=== PATIENT | female | born 1980 ===

== ENCOUNTER 2017-02-11 06:22 | Inpatient (IN) ==
[2017-02-11] MEDS ORDERED: BUTORPHANOL 2 MG/ML VIAL IV PRN (06:37)
[2017-02-11] MEDS ORDERED: ONDANSETRON 4 MG/2 ML VIAL IV PRN ×2 (06:37→21:39)
[2017-02-11] MEDS ORDERED: LACTATED RINGERS 250 ML IV ONE (06:37)
[2017-02-11] MEDS ORDERED: OXYTOCIN/LR 20 UNIT/1,000 ML BAG IV SCH (07:00)
[2017-02-11 07:05] LABS: Basophils % 0.3 % (0.0-0.8); Eosinophils % 0.7 % (0.00-10.9); Hematocrit 31.5 VOL% (35.7-47.0); Immature Granulocytes % 0.3 %; Immature Granulocytes Absolute 0.02 #; Lymphocytes # 1.5 10*3/uL (1.4-4.0); Lymphocytes % 25.5 % (21.3-54.2); Mean Corpuscular HGB Conc 31.7 GM/DL (32-36); Mean Corpuscular Hemoglobin 23 PG (27-34); Mean Corpuscular Volume 70.8 FL (87-102); Mean Platelet Volume 12.4 FL (9.6-12.0); Monocytes # 0.5 10*3/uL (0.11-0.8); Neutrophils # 3.8 10*3/uL (1.4-7.4); Neutrophils % 65.2 % (38.7-73.9); Platelet Count 212 T/CUMM (130-400); Red Blood Count 4.45 MC/CUMM (3.8-5.5); Red Cell Distribution Width 14.3 % (9.3-17.3); White Blood Count 5.8 T/CUMM (4-12)
[2017-02-11] MEDS: LACTATED RINGERS 1,000 ML IV SCH ×3 (07:46→17:58)
[2017-02-11 10:57] LABS: Apearance,Urine Slightly Hazy (Clear); Bacteria,Urine Few /HPF (Few); Bilirubin,Urine Negative (Negative); Blood, Urine Moderate mg/dL (Negative); Glucose,Urine (UA) Negative (Negative); Ketones,Urine Negative (Negative); Mucus,Urine Occasional /LPF (Occasional); Nitrite,Urine Negative (Negative); Protein,Urine Negative; RBC,Urine 5 /HPF (0-4); Squamous Epithelial Cell,Urine Occasional /HPF (0-10); Urine Color Yellow (Yellow); Urine Specific Gravity 1.008 (1.001-1.035); Urine Urobilinogen < 2.0 EU/DL (0.2-1.0); WBC,Urine 3 /HPF (0-6)
[2017-02-11] MEDS: MEPERIDINE 50 MG/1 ML VIAL IV PRN ×2 (12:59→18:24)
[2017-02-11] MEDS ORDERED: LACTATED RINGERS 1,000 ML IV ONE (14:39)
[2017-02-11] MEDS ORDERED: ePHEDrine 50 MG/ML AMP IV PRN (14:39)
[2017-02-11] MEDS ORDERED: CITRIC ACID/SODIUM CITRATE 30 ML UDCUP PO ONE (14:39)
[2017-02-11] MEDS ORDERED: FAMOTIDINE 20 MG/2 ML VIAL IV ONE (14:39)
[2017-02-11] MEDS ORDERED: PROMETHAZINE 25 MG/1 ML VIAL IM ONE (14:40)
[2017-02-11] MEDS ORDERED: hydrOXYzine HCL 25 MG/1 ML VIAL IM PRN (14:40)
[2017-02-11] MEDS ORDERED: diphenhydrAMINE 50 MG/1 ML VIAL IV PRN ×2 (14:40)
[2017-02-11] MEDS ORDERED: fentaNYL 2 MCG/ROPIV 0.2% EPID 150 ML EPIDURAL SCH (15:00)
[2017-02-11 16:55] LABS: Apearance,Urine CLEAR (Clear); Bacteria,Urine Occasional /HPF (Few); Bilirubin,Urine Negative (Negative); Blood, Urine Negative (Negative); Glucose,Urine (UA) Negative (Negative); Ketones,Urine 80 mg/dL (Negative); Mucus,Urine Occasional /LPF (Occasional); Nitrite,Urine Negative (Negative); Protein,Urine Negative; RBC,Urine 1 /HPF (0-4); Squamous Epithelial Cell,Urine Occasional /HPF (0-10); Urine Color Yellow (Yellow); Urine Specific Gravity 1.011 (1.001-1.035); Urine Urobilinogen < 2.0 EU/DL (0.2-1.0); WBC,Urine 1 /HPF (0-6)
[2017-02-11] MEDS ORDERED: LIDOCAINE 1% 50 ML VIAL ONE (19:20)
[2017-02-11] MEDS ORDERED: METHYLERGONOVINE 0.2 MG/1 ML AMP ONE (19:20)
[2017-02-11] MEDS ORDERED: miSOPROStol 200 MCG TABLET ONE (19:20)
[2017-02-11] MEDS ORDERED: OXYTOCIN/LR 20 UNIT/1,000 ML BAG IV ONE ×2 (20:17→21:39)
[2017-02-11] MEDS ORDERED: DIPH/TET/ACEL PERT BOOSTER VACCINE 0.5 ML VIAL IM ONE (21:39)
[2017-02-11] MEDS ORDERED: BISACODYL 10 MG SUPP RECTAL PRN (21:39)
[2017-02-11] MEDS ORDERED: oxyCODONE/ACETAMINOPHEN 5-325 MG TABLET PO PRN (21:39)
[2017-02-11] MEDS ORDERED: BENZOCAINE 20%/MENTHOL 0.5% SPRAY 56 GM CAN TOP PRN (21:39)
[2017-02-11] MEDS ORDERED: WITCH HAZEL PADS 100/JAR TOP PRN (21:39)
[2017-02-11] MEDS ORDERED: MEASLES/MUMPS/RUBELLA VACCINE 0.5 ML VIAL SUBCUT ONE (21:39)
[2017-02-11] MEDS ORDERED: RHO(D) IMMUNE GLOBULIN 300 MCG SYRINGE IM ONE (21:39)
[2017-02-11] MEDS ORDERED: HYDROCORTISONE 2.5% RECTAL CREAM 30 GM TUBE TOP PRN (21:39)
[2017-02-11] MEDS ORDERED: ACETAMINOPHEN 325 MG TABLET PO PRN (21:39)
[2017-02-11] MEDS ORDERED: LANOLIN 50% CREAM 0.3 OZ TUBE TOP PRN (21:39)
[2017-02-11] MEDS: oxyCODONE/ACETAMINOPHEN 5-325 MG TABLET PO PRN (21:51)
[2017-02-11] MEDS: IBUPROFEN 800 MG TABLET PO PRN (21:52)
[2017-02-12 06:04] LABS: Basophils % 0.2 % (0.0-0.8); Eosinophils % 0.3 % (0.00-10.9); Hematocrit 26.8 VOL% (35.7-47.0); Hemoglobin 8.6 GM/DL (12.0-16.0); Immature Granulocytes % 0.4 %; Immature Granulocytes Absolute 0.04 #; Lymphocytes # 1.4 10*3/uL (1.4-4.0); Lymphocytes % 12.4 % (21.3-54.2); Mean Corpuscular HGB Conc 32.1 GM/DL (32-36); Mean Corpuscular Hemoglobin 23 PG (27-34); Mean Corpuscular Volume 70.7 FL (87-102); Mean Platelet Volume 12.3 FL (9.6-12.0); Monocytes # 0.7 10*3/uL (0.11-0.8); Monocytes % 6.3 % (1.7-12.7); Neutrophils % 80.4 % (38.7-73.9); Platelet Count 155 T/CUMM (130-400); Red Blood Count 3.79 MC/CUMM (3.8-5.5); Red Cell Distribution Width 14.5 % (9.3-17.3); White Blood Count 11.2 T/CUMM (4-12)
[2017-02-12 06:43] LABS: Hypochromasia 1+; Microcytosis 1+; Ovalocytes Slight; Platelet Estimate Adequate; Target Cells Slight
[2017-02-12] MEDS: IBUPROFEN 800 MG TABLET PO PRN ×3 (07:46→21:47)
[2017-02-12] MEDS: oxyCODONE/ACETAMINOPHEN 5-325 MG TABLET PO PRN ×3 (07:47→21:46)
[2017-02-12] MEDS: DOCUSATE SODIUM 100 MG CAPSULE PO SCH ×2 (09:50→20:27)
[2017-02-12] MEDS: FERROUS SULFATE 325 MG TABLET PO SCH ×2 (09:52→20:27)
[2017-02-12] MEDS ORDERED: RHO(D) IMMUNE GLOBULIN 300 MCG SYRINGE IM ONE (18:31)
[2017-02-13] MEDS: oxyCODONE/ACETAMINOPHEN 5-325 MG TABLET PO PRN (06:03)
[2017-02-13] MEDS: IBUPROFEN 800 MG TABLET PO PRN (06:04)
[2017-02-13 07:23] VITALS: BP 110/53
[2017-02-13] MEDS: DOCUSATE SODIUM 100 MG CAPSULE PO SCH (08:40)
== END 2017-02-13 13:10 | disposition home or self-care (01) | DRG 775 ==
LOC: N.LDOUT 06:22 → N.LD 06:24 → N.OB 23:11
PROVIDERS: ADMIT Obstetrics & Gynecology; ATTEND Obstetrics & Gynecology

== ENCOUNTER 2018-04-23 08:05 | Inpatient (IN) ==
[2018-04-23] MEDS ORDERED: ONDANSETRON 4 MG/2 ML VIAL IV PRN (08:26)
[2018-04-23] MEDS ORDERED: BUTORPHANOL 2 MG/ML VIAL IV PRN (08:26)
[2018-04-23] MEDS ORDERED: MEPERIDINE 50 MG/1 ML VIAL IV PRN (08:26)
[2018-04-23] MEDS ORDERED: OXYTOCIN/LR 20 UNIT/1,000 ML BAG IV SCH (08:30)
[2018-04-23] MEDS: LACTATED RINGERS 1,000 ML IV SCH ×2 (08:38→09:34)
[2018-04-23 08:46] LABS: Basophils % 0.4 % (0.0-0.8); Eosinophils # 0.1 10*3/uL (0.0-0.87); Eosinophils % 1.5 % (0.00-10.9); Hematocrit 33.2 VOL% (35.7-47.0); Hemoglobin 10.2 GM/DL (12.0-16.0); Immature Granulocytes % 0.4 %; Immature Granulocytes Absolute 0.02 #; Lymphocytes # 1.5 10*3/uL (1.4-4.0); Lymphocytes % 27.2 % (21.3-54.2); Mean Corpuscular HGB Conc 30.7 GM/DL (32-36); Mean Corpuscular Hemoglobin 23 PG (27-34); Mean Corpuscular Volume 73.9 FL (87-102); Mean Platelet Volume 12.4 FL (9.6-12.0); Monocytes # 0.5 10*3/uL (0.11-0.8); Monocytes % 8.9 % (1.7-12.7); Neutrophils # 3.3 10*3/uL (1.4-7.4); Neutrophils % 61.6 % (38.7-73.9); Platelet Count 207 T/CUMM (130-400); Red Blood Count 4.49 MC/CUMM (3.8-5.5); Red Cell Distribution Width 14.4 % (9.3-17.3); White Blood Count 5.4 T/CUMM (4-12)
[2018-04-23 09:02] LABS: Alanine Aminotransferase < 9 U/L (13-56); Albumin 2.4 G/DL (3.4-5.0); Alkaline Phosphatase 146 U/L (45-117); Aspartate Amino Transferase 11 U/L (0-37); Bilirubin,Total < 0.39 MG/DL (0.2-1.0); Blood Urea Nitrogen 5 MG/DL (7-18); Calcium 8.8 MG/DL (8.5-10.1); Glucose 85 MG/DL (74-106); Osmolality,Calculated 268.8 MOS/KG (273-304); Potassium 3.7 MMOL/L (3.5-5.1); Sodium 137 MMOL/L (136-145)
[2018-04-23] MEDS ORDERED: FAMOTIDINE 20 MG/2 ML VIAL IV ONE (09:05)
[2018-04-23] MEDS ORDERED: NALOXONE 0.4 MG/ML VIAL IV PRN (09:05)
[2018-04-23] MEDS ORDERED: diphenhydrAMINE 50 MG/1 ML VIAL IV PRN ×2 (09:05)
[2018-04-23] MEDS ORDERED: ONDANSETRON 4 MG/2 ML VIAL IV ONE (09:05)
[2018-04-23] MEDS ORDERED: ePHEDrine 50 MG/ML AMP IV PRN (09:05)
[2018-04-23] MEDS ORDERED: CITRIC ACID/SODIUM CITRATE 30 ML UDCUP PO ONE (09:05)
[2018-04-23] MEDS ORDERED: hydrOXYzine HCL 25 MG/1 ML VIAL IM PRN (09:05)
[2018-04-23] MEDS ORDERED: PROMETHAZINE 25 MG/1 ML VIAL IM ONE (09:05)
[2018-04-23] MEDS ORDERED: fentaNYL 2 MCG/ROPIV 0.2% EPID 100 ML EPIDURAL SCH (09:30)
[2018-04-23] MEDS ORDERED: LIDOCAINE 1% 50 ML VIAL ONE (12:22)
[2018-04-23] MEDS ORDERED: HYDROCORTISONE 2.5% RECTAL CREAM 30 GM TUBE TOP PRN (14:17)
[2018-04-23] MEDS ORDERED: MEASLES/MUMPS/RUBELLA VACCINE 0.5 ML VIAL SUBCUT ONE (14:17)
[2018-04-23] MEDS ORDERED: LANOLIN 50% CREAM 0.3 OZ TUBE TOP PRN (14:17)
[2018-04-23] MEDS ORDERED: oxyCODONE/ACETAMINOPHEN 5-325 MG TABLET PO PRN (14:17)
[2018-04-23] MEDS ORDERED: RHO(D) IMMUNE GLOBULIN 300 MCG SYRINGE IM ONE (14:17)
[2018-04-23] MEDS ORDERED: ACETAMINOPHEN 325 MG TABLET PO PRN (14:17)
[2018-04-23] MEDS ORDERED: BENZOCAINE 20%/MENTHOL 0.5% SPRAY 56 GM CAN TOP PRN (14:17)
[2018-04-23] MEDS ORDERED: DIPH/TET/ACEL PERT BOOSTER VACCINE 0.5 ML VIAL IM ONE (14:17)
[2018-04-23] MEDS ORDERED: BISACODYL 10 MG SUPP RECTAL PRN (14:17)
[2018-04-23] MEDS ORDERED: ACETAMINOPHEN/CODEINE 300-30 MG TABLET PO PRN (14:17)
[2018-04-23] MEDS ORDERED: WITCH HAZEL PADS 100/JAR TOP PRN (14:17)
[2018-04-23] MEDS: IBUPROFEN 800 MG TABLET PO PRN (14:29)
[2018-04-23] MEDS: oxyCODONE/ACETAMINOPHEN 5-325 MG TABLET PO PRN ×2 (15:51→23:15)
[2018-04-23] MEDS: DOCUSATE SODIUM 100 MG CAPSULE PO SCH (21:11)
[2018-04-24 06:26] LABS: Basophils % 0.2 % (0.0-0.8); Eosinophils # 0.1 10*3/uL (0.0-0.87); Eosinophils % 0.8 % (0.00-10.9); Hematocrit 29.3 VOL% (35.7-47.0); Immature Granulocytes % 0.5 %; Immature Granulocytes Absolute 0.04 #; Lymphocytes # 2.2 10*3/uL (1.4-4.0); Lymphocytes % 24.5 % (21.3-54.2); Mean Corpuscular HGB Conc 30.7 GM/DL (32-36); Mean Corpuscular Hemoglobin 23 PG (27-34); Mean Corpuscular Volume 73.6 FL (87-102); Mean Platelet Volume 12.2 FL (9.6-12.0); Monocytes # 0.6 10*3/uL (0.11-0.8); Monocytes % 6.9 % (1.7-12.7); Neutrophils % 67.1 % (38.7-73.9); Platelet Count 171 T/CUMM (130-400); Red Blood Count 3.98 MC/CUMM (3.8-5.5); Red Cell Distribution Width 14.6 % (9.3-17.3); White Blood Count 8.9 T/CUMM (4-12)
[2018-04-24] MEDS: oxyCODONE/ACETAMINOPHEN 5-325 MG TABLET PO PRN ×3 (07:24→23:42)
[2018-04-24] MEDS ORDERED: RHO(D) IMMUNE GLOBULIN 300 MCG SYRINGE IM ONE (07:52)
[2018-04-24] MEDS: FERROUS SULFATE 325 MG TABLET PO SCH ×2 (08:23→21:43)
[2018-04-24] MEDS: DOCUSATE SODIUM 100 MG CAPSULE PO SCH ×2 (08:23→21:43)
[2018-04-24] MEDS: IBUPROFEN 800 MG TABLET PO PRN (12:56)
[2018-04-25] MEDS: IBUPROFEN 800 MG TABLET PO PRN ×2 (04:52→13:30)
[2018-04-25] MEDS: DOCUSATE SODIUM 100 MG CAPSULE PO SCH (08:57)
[2018-04-25] MEDS: FERROUS SULFATE 325 MG TABLET PO SCH (08:58)
[2018-04-25 16:00] VITALS: BP 120/68
[2018-04-25] MEDS ORDERED: SIMETHICONE CHEW 80 MG TABLET PO PRN (16:34)
== END 2018-04-25 18:45 | disposition home or self-care (01) | DRG 807 ==
LOC: N.LDOUT 08:05 → N.LD 08:09 → N.OB 15:14
PROVIDERS: ADMIT Obstetrics & Gynecology; ATTEND Obstetrics & Gynecology

== ENCOUNTER → 2018-05-09 17:44 | Observation (INO) ==
[2018-05-08] MEDS: IBUPROFEN 800 MG TABLET PO PRN (21:35)
[2018-05-09] MEDS: IBUPROFEN 800 MG TABLET PO PRN (06:16)
[2018-05-09 07:49] VITALS: BP 119/68
[~2018-05-09 17:44] MED LIST: ACETAMINOPHEN 325 MG TABLET PO PRN; INFLUENZA VIRUS VACCINE 0.5 ML SYRINGE IM ONE; hydrALAZINE 20 MG/1 ML VIAL IM ONE; hydrALAZINE 20 MG/1 ML VIAL IM PRN; oxyCODONE/ACETAMINOPHEN 5-325 MG TABLET PO PRN
== END | disposition home or self-care (01) ==
LOC: N.OB
PROVIDERS: ADMIT Obstetrics & Gynecology; ATTEND Obstetrics & Gynecology